=== PATIENT | male | born 1940 | race Caucasian/White ===

== ENCOUNTER → 2017-03-18 | Outpatient (REF) | payer MEDICARE ==
[~2017-03-18] MED LIST: ALBU8.5H2 IH; ALBU8.5H2 INH; ASPI-860 PO; AZIT500T PO; BUDE10.22 INH; FLUT1DIS2 IH; FURO40SO2 PO; IRON45TA6 PO; MELO-255 PO; PRD10T PO; PRED5TAB PO; SMV20T PO; SOTA80TA PO; SULF-221 PO; TIOT18CA IH; VARE0.5T PO
[2017-03-18 11:33] LABS: BASOPHILS % (AUTO) 1 % (0-2); EOSINOPHILS # (AUTO) 0.2 10^3uL; EOSINOPHILS % (AUTO) 2 % (0-4); LYMPHOCYTES # (AUTO) 2.2 X10^3; MEAN CORPUSCULAR HEMOGLOBIN 29.5 PG (26.0-34.0); MEAN CORPUSCULAR VOLUME 94 FL (80-100); MEAN PLATELET VOLUME 12.1 FL (6.0-9.5); MONOCYTES # (AUTO) 1.5 X10^3; MONOCYTES % (AUTO) 13 % (3-11); NEUTROPHILS # (AUTO) 7.8 X10^3; NEUTROPHILS % (AUTO) 66 % (51-67); PLATELET COUNT 168 10^3uL (150-450); WHITE BLOOD COUNT 11.95 10^3uL (4.0-11.0)
[2017-03-18 11:36] LABS: MEAN CORPUSCULAR HGB CONC 31.4 g/dL (31.0-37.0)
[2017-03-18 11:55] LABS: ALBUMIN 3.6 g/dL (3.4-5.0); ANION GAP 12.1 MEQ/L (3-15); CALCULATED IONIZED CALCIUM 4.2 mg/dL (3.8-4.6)
== END ==
LOC: LAB 11:14
PROVIDERS: ATTEND Family Medicine
DX: I10 Essential (primary) hypertension (principal); M06.842 Other specified rheumatoid arthritis, left hand; Z13.6 Encounter for screening for cardiovascular disorders
CPT/HCPCS: 80053; 80061; 85025